=== PATIENT | female | born 1990 | race African-American/Black ===

== ENCOUNTER 2019-04-29 21:06 | Inpatient (IN) | payer BC, MEDICAID ==
[2019-04-29] MEDS ORDERED: BRETHINE IVP PRN (22:09)
[2019-04-29] MEDS ORDERED: XYLOCAINE 2% INFILTRATI ONE (22:09)
[2019-04-29] MEDS ORDERED: BRETHINE SUB-Q PRN (22:09)
[2019-04-29] MEDS ORDERED: PFIZERPEN 5 MIL.UNITS in NACL 0.9% 50 ML IV ONE (22:09)
[2019-04-29] MEDS ORDERED: MINERAL OIL PO PRN (22:09)
[2019-04-29] MEDS ORDERED: PITOCin/NS 20 UNIT/1000ML DRIP 20 UNITS/1,000 ML BAG IV SCH (23:00)
[2019-04-29] MEDS: LACTATED RINGERS 1,000 ML IV SCH (23:00)
[2019-04-29] MEDS ORDERED: PITOCin/NS 30 UNIT/500ML 30 UNITS/500 ML BAG IV SCH (23:00)
[2019-04-30 00:36] LABS: Hematocrit 35.6 % (30.3-42.9); Mean Corpuscular HGB Conc 34 % (30-34); Mean Corpuscular Volume 92 fl (79-97); Platelet Count 243 K/mm3 (140-440); Red Blood Count 3.86 M/mm3 (3.65-5.03); Red Cell Distribution Width 15.2 % (13.2-15.2)
[2019-04-30] MEDS ORDERED: TYLENOL PO PRN ×2 (00:44→05:20)
[2019-04-30] MEDS: LACTATED RINGERS 1,000 ML IV SCH (01:09)
[2019-04-30] MEDS ORDERED: PFIZERPEN 2.5 MIL.UNITS in NACL 0.9% 50 ML IV SCH (02:00)
[2019-04-30] MEDS ORDERED: AMPICILLIN/NS 1 GM/50 ML 1 GM/50 ML BAG IV SCH (02:16)
--- NOTE | 2019-04-30 02:56 | History and Physical Report ---
History of Present Illness Date of examination: 04/30/19 Date of admission: 04/29/19 22:25 Chief complaint: leakage of fluid History of present illness: 28y/o @ 39+3 weeks presents with leakage of fluid. Patient states she initially felt fluid leakage a day ago. Patient is +GBS. records not available for review. Past History Past Medical History: no pertinent history Past Surgical History: no surgical history Social history: single - Obstetrical History Expected Date of Delivery: 05/04/19 Actual Gestation: 39 Week(s) 3 Day(s) : 2 Para: 1 Hx # Term Pregnancies: 1 Number of Pregnancies: 0 Spontaneous Abortions: 0 Induced : 0 Number of Living Children: 1 Medications and Allergies Allergies Allergy/AdvReac Type Severity Reaction Status Date / Time No Known Allergies Allergy Unverified 04/29/19 21:27 Active Meds: Active Medications Acetaminophen (Tylenol) 650 mg PO Q6H PRN PRN Reason: Pain, Mild (1-3) Last Admin: 04/30/19 00:54 Dose: 650 mg Documented by: Ephedrine Sulfate (Ephedrine Sulfate) 10 mg IV Q2M PRN PRN Reason: Hypotension Oxytocin/Sodium Chloride (Pitocin/Ns 20 Unit/1000ml Drip) 20 units in 1,000 mls @ 125 mls/hr IV DIRECT NIRANJAN Oxytocin/Sodium Chloride (Pitocin/Ns 30 Unit/500ml) 30 units in 500 mls @ 1 mls/hr IV TITR NIRANJAN; Protocol Last Titration: 04/30/19 02:00 Dose: 6 milliunits/min, 6 mls/hr Documented by: Oxytocin/Sodium Chloride (Pitocin/Ns 30 Unit/500ml) 30 units in 500 mls @ 2 mls/hr IV TITR NIRANJAN; Protocol Lactated Ringer's (Lactated Ringers) 1,000 mls @ 125 mls/hr IV DIRECT NIRANJAN Last Admin: 04/30/19 01:09 Dose: 125 mls/hr Documented by: Penicillin G Potassium 2.5 mil (.units/ Sodium Chloride) 50 mls @ 100 mls/hr IV Q4HR NIRANJAN; Protocol Mineral Oil (Mineral Oil) 30 ml PO QHS PRN PRN Reason: Constipation Terbutaline Sulfate (Brethine) 0.25 mg SUB-Q ONCE PRN PRN Reason: Hyperstimulation/Hypertonicity Terbutaline Sulfate (Brethine) 0.25 mg IVP ONCE PRN PRN Reason: Hyperstimulation/Hypertonicity Review of Systems All systems: negative Genitourinary: leakage of fluid, contractions - Vital Signs Vital signs: Vital Signs Pulse BP 125 H 121/76 04/29/19 21:25 04/29/19 21:25 Temp Pulse Resp BP Pulse Ox 99.5 F 119 H 18 94/59 99 04/30/19 02:30 04/30/19 02:50 04/30/19 02:30 04/30/19 02:30 04/30/19 02:50 - Physical Exam Breasts: Positive: deferred Cardiovascular: Regular rate Lungs: Positive: Clear to auscultation Abdomen: Positive: normal appearance - Obstetrical Cervical Dilatation: 2 Results Result Diagrams: 04/30/19 00:07 Abnormal lab results 04/30/19 Range/Units 00:07 WBC 14.1 H (4.5-11.0) K/mm3 All other labs normal. Assessment and Plan - Patient Problems (1) Spontaneous rupture of amniotic membranes Current Visit: Yes Status: Acute Plan to address problem: admit for labor augmentation and IV antibiotics
[2019-04-30] MEDS ORDERED: PITOCin/NS 30 UNIT/500ML 30 UNITS/500 ML BAG IV SCH (05:00)
--- NOTE | 2019-04-30 05:13 | Procedure Note ---
OB Delivery Note - Delivery Date of Delivery: 04/30/19 Surgeon: CARA TARANGO Estimated blood loss: 100cc - Vaginal Delivery presentation: vertex Delivery position: OA Intrapartum events: other(please specify) (prolonged rupture) Delivery augmentation: pitocin Delivery monitor: external FHT, external uterine Route of delivery: Delivery placenta: spontaneous Delivery cord: 3 umbilical vessels Episiotomy: none Delivery laceration: 2nd degree Delivery repair: vicryl Anesthesia: local - A at 1 minute: 8 at 5 minutes: 9 Infant Gender: Female (weight 6lbs 5oz)
[2019-04-30] MEDS ORDERED: LANSINOH TP PRN (05:20)
[2019-04-30] MEDS ORDERED: TUCKS PAD TP PRN (05:20)
[2019-04-30] MEDS ORDERED: NORCO 5/325 PO PRN (05:20)
[2019-04-30] MEDS ORDERED: SODIUM CHLORIDE FLUSH SYRINGE 10 ML IV NR (06:00)
[2019-04-30] MEDS: IBUPROFEN PO SCH ×3 (06:57→18:30)
[2019-04-30 20:16] LABS: Hematocrit 29.2 % (30.3-42.9); Hemoglobin 9.8 gm/dl (10.1-14.3)
[2019-05-01] MEDS: IBUPROFEN PO SCH ×4 (05:43→23:57)
--- NOTE | 2019-05-01 08:27 | Progress Note ---
Assessment and Plan A/P PPD1 s/p vss acute anemia on iron discharge home tomorrow Subjective - Subjective Date of service: 05/01/19 Principal diagnosis: s/p Patient reports: appetite normal, voiding normally, pain well controlled, flatus, ambulating normally [place]: doing well Objective - Vital Signs Latest vital signs: Vital Signs Temp Pulse Resp BP BP Pulse Ox 05/01/19 06:43 18 05/01/19 05:43 18 05/01/19 00:00 98.7 F 64 18 104/72 04/30/19 19:30 18 04/30/19 17:35 97.7 F 102 H 18 100/60 99 04/30/19 12:45 97.9 F 115 H 18 98/58 90 Intake and Output 04/30/19 05/01/19 05/01/19 23:59 07:59 15:59 Intake Total 360 420 Balance 360 420 Intake: Intake, Free Water 360 420 Other: # Voids Void 1 1 - Exam Breasts: Present: normal Cardiovascular: Present: Regular rate, Normal S1 Lungs: Present: Clear to auscultation, Normal air movement Abdomen: Present: normal appearance, soft, normal bowel sounds. Absent: distention, tenderness, guarding Vulva: both: normal Uterus: Present: normal, firm, fundal height below umbilicus. Absent: bogginess, tenderness Extremities: Present: normal Deep Tendon Reflex Grade: Normal +2 Incision: Present: normal - Labs Labs: Abnormal lab results 04/30/19 Range/Units 19:55 Hgb 9.8 L (10.1-14.3) gm/dl Hct 29.2 L D (30.3-42.9) %
--- NOTE | 2019-05-01 08:31 | Discharge Summary ---
Providers - Providers Date of Admission: 04/29/19 22:25 Date of discharge: 05/02/19 Attending physician: CARA TARANGO Primary care physician: CARA TARANGO Hospitalization Reason for admission: active labor Delivery: Episiotomy: none Laceration: none Incision: normal Other procedures: none complications: none Discharge diagnosis: IUP at term delivered [place] baby: female Hospital course: unremarkable hospital course Condition at discharge: Good Disposition: DC-01 TO HOME OR SELFCARE Plan - Discharge Medications Prescriptions: Ferrous Sulfate [Feosol 325 MG tab] 325 mg PO QDAY #30 tablet Ibuprofen [Motrin] 600 mg PO Q8H PRN #30 tablet PRN Reason: Pain - Provider Discharge Summary Activity: routine, no sex for 6 weeks, no strenuous exercise Diet: routine Instructions: routine Additional instructions: [] Smoking cessation referral if applicable(refer to patient education folder for contact #) [] Refer to [facility] Booklet Call your doctor immediately for: * Fever > 100.5 * Heavy vaginal bleeding ( >1 pad per hour) * Severe persistent headache * Shortness of breath * Reddened, hot, painful area to leg or breast * Drainage or odor from incision. * Keep incision clean and dry at all times and follow doctor's instructions regarding bathing/showering - Follow up plan Follow up: CARA TARANGO MD [Primary Care Provider] - 05/28/19
[2019-05-02] MEDS: IBUPROFEN PO SCH ×2 (06:28→11:12)
--- NOTE | 2019-05-02 08:54 | Progress Note ---
Assessment and Plan A/P PPD2 s/p VSS Anemia- needs iron Discharge to home today Subjective - Subjective Date of service: 05/02/19 Principal diagnosis: s/p Interval history: Pt is PPD2 s/p , 2nd degree lac, EBL 100, anemia. is in NICU for infection observation due to prolonged rupture of membranes. Patient reports: appetite normal, voiding normally, pain well controlled, ambulating normally : in NICU, bottle feeding (pt is pumping) Objective - Vital Signs Latest vital signs: Vital Signs Temp Pulse Resp BP 05/02/19 06:28 18 05/02/19 00:57 18 05/02/19 00:00 98.4 F 74 18 99/78 05/01/19 23:57 18 Intake and Output 05/01/19 05/02/19 05/02/19 23:59 07:59 15:59 Intake Total 600 300 Balance 600 300 Intake: Oral 240 Intake, Free Water 360 300 Other: Total, Intake Amount 240 # Voids Void 2 - Exam Breasts: Present: normal Cardiovascular: Present: Regular rate, Normal S1, Normal S2, No murmurs Lungs: Present: Clear to auscultation, Normal air movement Abdomen: Present: normal appearance, soft. Absent: distention, tenderness, guarding Uterus: Present: normal, firm, fundal height below umbilicus Extremities: Present: normal
[2019-05-02 09:25] VITALS: BP 104/70
== END 2019-05-02 17:00 | disposition home or self-care (01) | DRG 807 ==
LOC: TRG 21:06 → LD 22:25 → TRG 22:25 → OB 04-30 08:23
PROVIDERS: ADMIT Obstetrics & Gynecology; ATTEND Obstetrics & Gynecology
PROC: 10E0XZZ Delivery of Products of Conception, External Approach (ICD-10-PCS; principal; 2019-04-30)
DX: O70.1 Second degree perineal laceration during delivery (principal); Z37.0 Single live birth; Z3A.39 39 weeks gestation of pregnancy; O42.92 Full-term premature rupture of membranes, unspecified as to length of time between rupture and onset of labor; O90.81 Anemia of the puerperium
CPT/HCPCS: 36415; 85014; 85018; 85027; 86592; 86706; 86762; 86850; 86900; 86901; 87806; G0378; J2540; J2590; J7120